=== PATIENT | female | born 1940 | race Caucasian/White ===

== ENCOUNTER 2022-09-13 23:10 | Inpatient (IN) | payer MEDICARE, OTHER ==
[~2022-09-13] VITALS: Ht 162.6 cm; Wt 59.0 kg
--- NOTE | 2022-09-13 23:24 | NUR ---
[id number]. DIZZYNESS X 2 HRS. PT A/OX4. TOLERTING R/A WELL WITH NO RESP DISTRESS. CONNECTED PT TO POX AND MONITOR. SAFETY MEASURES IN PLACE.
--- NOTE | 2022-09-13 23:59 | NUR ---
DR. JOSÉ MANUEL HERNANDEZ AT PT'S BEDSIDE FOR EVAL
[2022-09-14] MEDS ORDERED: IV NS 0.9% 500 ML BAG IV ONE
--- NOTE | 2022-09-14 00:18 | NUR ---
RAC #20G S/L BLOOD COLLECTED AND SENT TO LAB
--- NOTE | 2022-09-14 00:25 | NUR ---
URINE COLLECTED AND SENT TO LAB
[2022-09-14] MEDS ORDERED: MORPHINE SULFATE INJ 2 MG/ML DISP.SYRIN IV ONE (00:30)
[2022-09-14] MEDS ORDERED: MECLIZINE HCL 12.5 MG TABLET PO ONE (00:30)
[2022-09-14] MEDS ORDERED: ONDANSETRON HCL/PF 4 MG/2 ML VIAL IV ONE (00:30)
[2022-09-14] MEDS ORDERED: MECLIZINE HCL 25 MG TABLET ONE (00:50)
[2022-09-14] MEDS ORDERED: ONDANSETRON HCL/PF 4 MG/2 ML VIAL ONE (00:50)
[2022-09-14] MEDS ORDERED: MORPHINE SULFATE INJ 2 MG/ML DISP.SYRIN ONE (00:50)
[2022-09-14 00:51] LABS: BASOPHILS % (AUTO) 0.5 % (0.0-2.0); EOSINOPHILS % (AUTO) 3.5 % (0.0-6.0); HEMATOCRIT 37 % (33-45); HEMOGLOBIN 12.3 g/dL (11.5-14.8); LYMPHOCYTES # (AUTO) 1.8 K/uL (0.8-4.8); LYMPHOCYTES % (AUTO) 25.3 % (20.0-44.0); MEAN CORPUSCULAR HGB CONC 34 g/dl (31.0-36.0); MEAN CORPUSCULAR VOLUME 84 fL (82-100); MONOCYTES % (AUTO) 13.7 % (2.0-12.0); NEUTROPHILS # (AUTO) 4.1 K/uL (1.8-8.9); PLATELET COUNT (AUTO) 221 K/uL (150-450); RED BLOOD CELL COUNT(AUTO) 4.35 MIL/uL (4.0-5.2); WHITE BLOOD COUNT (AUTO) 7.2 K/uL (4.3-11.0)
--- NOTE | 2022-09-14 00:51 | NUR ---
PT TAKEN TO CT VIA MIKE
--- NOTE | 2022-09-14 00:56 | NUR ---
PT RETURNED TO ER BED [address]
[2022-09-14 01:00] LABS: CALCIUM, SERUM 8.7 mg/dL (8.5-10.1); CARBON DIOXIDE 27 mmol/L (21-32); CHLORIDE 96 mmol/L (98-107); CREATININE 0.8 mg/dL (0.6-1.3); GLUCOSE 105 mg/dL (74-106); POTASSIUM 3.8 mmol/L (3.5-5.1); SODIUM SERUM 129 mmol/L (136-145); UREA NITROGEN, BLOOD 17 mg/dL (7-18)
[2022-09-14 01:07] LABS: ALANINE AMINOTRANSFERASE 31 U/L (12-78); ALBUMIN 3.7 g/dL (3.4-5.0); ALKALINE PHOSPHATASE 52 U/L (46-116); ASPARTATE AMINOTRANSFERASE 17 U/L (15-37); BILIRUBIN,DIRECT 0.2 mg/dL (0.0-0.2); BILIRUBIN,TOTAL 0.6 mg/dL (0.2-1.0); TOTAL PROTEIN, SERUM 7.2 g/dL (6.4-8.2)
[2022-09-14 01:11] LABS: BILIRUBIN,URINE NEGATIVE (NEGATIVE); COLOR,URINE YELLOW (YELLOW); LEUKOCYTE ESTERASE ,URINE 1+ (NEGATIVE); NITRITE, URINE NEGATIVE (NEGATIVE); PROTEIN,URINE NEGATIVE (NEGATIVE); UGLUCOSE NEGATIVE (NEGATIVE); UROBILINOGEN,URINE 0.2 EU/dL (0.2)
[2022-09-14 01:22] LABS: BACTERIA,URINE 1+ /HPF (None Seen); RBC,URINE 0-2 /HPF (0-2); SQUAMOUS EPITHELIAL CELL,UR Few /HPF (None Seen)
[2022-09-14] MEDS ORDERED: NITROFURANTOIN/MONOHYDRATE MACROCRYSTALS 100 MG CAPSULE PO ONE (02:00)
[2022-09-14] MEDS ORDERED: NITROFURANTOIN/MONOHYDRATE MACROCRYSTALS 100 MG CAPSULE ONE (02:04)
--- NOTE | 2022-09-14 04:01 | NUR ---
COVID ANTIGEN SWAB COLLECTED AND SENT TO LAB
--- NOTE | 2022-09-14 04:11 | NUR ---
PT AMBULATORY TO RESTROOM WITH STEADY GAIY. ADLS DONE DENIES DIZZINESS OR PAIN.
--- NOTE | 2022-09-14 04:22 | NUR ---
PAGED EPIC FOR PANEL
--- NOTE | 2022-09-14 04:27 | NUR ---
DR. GEORGES ON PHONECALL WITH DR. ROSA FOR PANEL
[2022-09-14] MEDS ORDERED: hydrALAZINE HCL IV 20 MG VIAL IV PRN (05:00)
[2022-09-14] MEDS ORDERED: ACETAMINOPHEN 325 MG TABLET PO PRN (05:00)
[2022-09-14] MEDS ORDERED: ALBUTEROL FS 2.5 MG/0.5 ML VIAL.NEB NEB PRN (05:00)
[2022-09-14] MEDS ORDERED: MORPHINE SULFATE INJ 2 MG/ML DISP.SYRIN IV PRN (05:00)
[2022-09-14] MEDS ORDERED: ONDANSETRON HCL/PF 4 MG/2 ML VIAL IVP PRN (05:00)
[2022-09-14 05:45] LABS: THYROID STIMULATING HORMONE 0.88 uIU/mL (0.358-3.74)
--- NOTE | 2022-09-14 06:02 | NUR ---
REPORT GIVEN TO 3W YAIMA PANDEY FOR CARMEN
--- NOTE | 2022-09-14 06:14 | NUR ---
US TECH AT PT'S BEDSIDE
--- NOTE | 2022-09-14 06:25 | NUR ---
PT TRANSFERRED TO 310-1 VIA ACLS PROTOCOL. VSS. ALL BELONGINGS WITH PT.
[2022-09-14 06:30] VITALS: BP 140/72
--- NOTE | 2022-09-14 07:40 | NUR ---
RN OPENING NOTE PATIENT AWAKE IN BED RESTING A/O X 4. NO S/S OF PAIN NOTED AT THIS TIME. ON ROOM AIR, NO DISTRESS OR SHORTNESS OF BREATH NOTED. IV ACCESS RAC#20G, INTACT, PATENT AND FLUSHING WELL. PATIENT WITH EXTERNAL TRANSITION LEAD WITH CURRENT READING OF SR AND HR OF 75, NO CARDIAC DISTRESS NOTED. FALL AND SAFETY MEASURES IN PLACE, BED ALARM ON, BED IN LOW AND LOCK POSITION, CALL LIGHT AND TABLE WITHIN EASY REACH, SIDE RAILS X2. WILL CONTINUE TO MONITOR.
[2022-09-14 08:26] VITALS: BP 170/73
[2022-09-14] MEDS ORDERED: CHOL200010 PO (08:47)
[2022-09-14] MEDS ORDERED: BENA40TA8 PO (08:47)
[2022-09-14] MEDS ORDERED: FURO20TA4 PO (08:47)
[2022-09-14] MEDS ORDERED: HYDR-4077 PO (08:47)
[2022-09-14] MEDS ORDERED: METH1TAB69 PO (08:47)
[2022-09-14] MEDS ORDERED: DIGO125T PO (08:47)
[2022-09-14] MEDS ORDERED: CARV6.252 PO (08:47)
[2022-09-14] MEDS ORDERED: ROSU5TAB13 PO (08:47)
[2022-09-14] MEDS ORDERED: TAMS-12 PO (08:47)
[2022-09-14] MEDS ORDERED: APIX5TAB PO (08:47)
[2022-09-14] MEDS ORDERED: HEPARIN SODIUM, PORCINE 5000 UNITS/1 ML VIAL SQ SCH (09:00)
[2022-09-14] MEDS: CEFTRIAXONE 1 G in IV D5W 50 ML IV SCH (09:36)
[2022-09-14] MEDS: IV NS 0.9% 1,000 ML IV SCH ×2 (09:37→17:23)
[2022-09-14] MEDS: hydrALAZINE HCL 50 MG TABLET PO SCH ×3 (10:52→17:22)
[2022-09-14] MEDS: CARVEDILOL 6.25 MG TABLET PO SCH ×2 (10:55→17:22)
[2022-09-14] MEDS: APIXABAN 5 MG TABLET PO SCH ×3 (10:56→17:00)
[2022-09-14] MEDS ORDERED: METHENAMINE MANDELATE 1 GM TABLET PO SCH ×3 (11:00→13:30)
[2022-09-14 11:49] LABS: DIGOXIN 0.53 ng/mL (0.90-2.00)
[2022-09-14 13:20] VITALS: BP 122/52
[2022-09-14 14:50] VITALS: BP 122/52
[2022-09-14 16:16] VITALS: BP 136/60
--- NOTE | 2022-09-14 18:51 | NUR ---
RN CLOSING NOTE PATIENT AWAKE IN BED RESTING A/O X 4. NO S/S OF PAIN NOTED AT THIS TIME. ON ROOM AIR, NO DISTRESS OR SHORTNESS OF BREATH NOTED. IV ACCESS RAC#20G, INTACT, PATENT AND FLUSHING WELL. 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 SCHEDULE MEDICATIONS ADMINISTERED. FALL AND SAFETY MEASURES IN PLACE, BED ALARM ON, BED IN LOW AND LOCK POSITION, CALL LIGHT AND TABLE WITHIN EASY REACH, SIDE RAILS X2. WILL ENDORSE TO MARKET INTELLIGENCE CONSULTANT.
--- NOTE | 2022-09-14 19:10 | NUR ---
RN OPENING NOTE PATIENT IN BED, EYES CLOSED. EASILY AWAKENED. A/O X 4, PRIMARILY FARSI SPEAKING BUT ABLE TO SPEAK SOME [place]GI[place]. PATIENT IS ON RA, TOLERATING WELL, NO SOB NOTED. SHE IS ON TELE MONITOR READING SR 68 BPM. PATIENT HAS A RAC 20 G PATENT AND INTACT WITH NS AT 75 ML/HR ONGOING. PATIENT DOES NOT REPORT ANY DIZZINESS OR PAIN AT THIS TIME. SAFETY MEASURES IN PLACE: BED LOCKED AND IN LOWEST POSITION, CALL LIGHT WITHIN REACH, SIDE RAILS UP, BED ALARM ON. WILL MONITOR PATIENT CLOSELY.
[2022-09-14 20:00] VITALS: BP 142/61
[2022-09-14] MEDS ORDERED: TAMSULOSIN 0.4 MG CAP.SR.24H PO SCH (22:00)
[2022-09-15] VITALS: BP 133/67
[2022-09-15 05:00] VITALS: BP 158/66
[2022-09-15 06:20] LABS: BASOPHILS % (AUTO) 0.6 % (0.0-2.0); EOSINOPHILS % (AUTO) 4.7 % (0.0-6.0); HEMATOCRIT 36 % (33-45); HEMOGLOBIN 11.9 g/dL (11.5-14.8); LYMPHOCYTES # (AUTO) 1.9 K/uL (0.8-4.8); MEAN CORPUSCULAR HGB CONC 33 g/dl (31.0-36.0); MEAN CORPUSCULAR VOLUME 84 fL (82-100); MONOCYTES # (AUTO) 0.8 K/uL (0.1-1.30); MONOCYTES % (AUTO) 12.9 % (2.0-12.0); NEUTROPHILS # (AUTO) 3.4 K/uL (1.8-8.9); NEUTROPHILS % (AUTO) 52.8 % (43.0-81.0); PLATELET COUNT (AUTO) 216 K/uL (150-450); RED BLOOD CELL COUNT(AUTO) 4.25 MIL/uL (4.0-5.2); WHITE BLOOD COUNT (AUTO) 6.4 K/uL (4.3-11.0)
[2022-09-15] MEDS: IV NS 0.9% 1,000 ML IV SCH (06:41)
[2022-09-15 06:46] LABS: BILIRUBIN,TOTAL 0.4 mg/dL (0.2-1.0); CALCIUM, SERUM 8.6 mg/dL (8.5-10.1); CREATININE 0.7 mg/dL (0.6-1.3); MAGNESIUM 1.9 mg/dL (1.8-2.4); PHOSPHORUS 3.4 mg/dL (2.5-4.9); POTASSIUM 3.8 mmol/L (3.5-5.1); TOTAL PROTEIN, SERUM 6.1 g/dL (6.4-8.2)
--- NOTE | 2022-09-15 06:46 | NUR ---
RN CLOSING NOTE PATIENT IN BED, EYES CLOSED. EASILY AWAKENED. A/O X 4, PRIMARILY FARSI SPEAKING BUT ABLE TO SPEAK SOME [place]ORU[place]. PATIENT IS ON RA, TOLERATING WELL, NO SOB NOTED. SHE IS ON TELE MONITOR READING SR 64 BPM. PATIENT HAS A RAC 20 G PATENT AND INTACT WITH NS AT 75 ML/HR ONGOING. PATIENT DID NOT REPORT ANY DIZZINESS DURING THE SHIFT. SAFETY MEASURES IN PLACE: BED LOCKED AND IN LOWEST POSITION, CALL LIGHT WITHIN REACH, SIDE RAILS UP, BED ALARM ON. ALL NEEDS MET AND ATTENDED. ALL ORDERS CARRIED OUT. WILL ENDORSE TO DAY SHIFT NURSE FOR CARMEN.
--- NOTE | 2022-09-15 07:45 | NUR ---
RN OPENING NOTE PATIENT AWAKE IN BED RESTING A/O X 4. NO S/S OF PAIN NOTED AT THIS TIME. ON ROOM AIR, NO DISTRESS OR SHORTNESS OF BREATH NOTED. IV ACCESS RAC#20G, INTACT, PATENT AND FLUSHING WELL. PATIENT WITH EXTERNAL BOOKKEEPING ASSISTANT WITH CURRENT READING OF SR AND HR OF 68, NO CARDIAC DISTRESS NOTED. FALL AND SAFETY MEASURES IN PLACE, BED ALARM ON, BED IN LOW AND LOCK POSITION, CALL LIGHT AND TABLE WITHIN EASY REACH, SIDE RAILS X2. WILL CONTINUE TO MONITOR.
[2022-09-15 08:11] VITALS: BP_SYST 132; BP_SYST 137; BP_DIAS 69
[2022-09-15] MEDS: CEFTRIAXONE 1 G in IV D5W 50 ML IV SCH (08:36)
[2022-09-15] MEDS: hydrALAZINE HCL 50 MG TABLET PO SCH ×2 (08:37→13:38)
[2022-09-15] MEDS: APIXABAN 5 MG TABLET PO SCH (08:38)
[2022-09-15] MEDS: CARVEDILOL 6.25 MG TABLET PO SCH (08:38)
[2022-09-15] MEDS ORDERED: DIGOXIN 0.125 MG TABLET PO SCH (09:00)
[2022-09-15] MEDS ORDERED: ATORVASTATIN 10 MG TABLET PO SCH (09:00)
[2022-09-15] MEDS ORDERED: METHENAMINE MANDELATE 1 GM TABLET PO SCH (09:00)
[2022-09-15] MEDS ORDERED: BENAZEPRIL HCL 20 MG TABLET PO SCH (09:00)
[2022-09-15] MEDS ORDERED: BENA20TA78 PO (10:53)
[2022-09-15 12:00] VITALS: BP 136/67
[2022-09-15 13:38] VITALS: BP 136/61
--- NOTE | 2022-09-15 14:09 | NUR ---
SORORITY SUPERVISOR NOTE PATIENT DISCHARGE IN STABLE MEDICAL CONDITION. A/O X4. V/S TAKEN, STABLE AND RECORDED. NO IV ACCESS. NAME ARM BAND REMOVED. EXTERNAL POT RUNNER REMOVED AND RETURNED TO TELE DESK. SKIN ASSESSMENT DONE, SKIN INTACT. ALL BELONGINGS CHECKED AND SIGNED. HEALTH TEACHING AND DISCHARGE INSTRUCTIONS GIVEN TO PATIENT AND FAMILY AND VERBALIZED UNDERSTANDING. INSTRUCTED TO MAKE APPOINTMENT TO FOLLOW UP WITH HER DOCTOR. DISCUSSED PRESCRIPTIONS AND INSTRUCTED IN CASE OF EMERGENCY TO CALL 911 OR GO TO NEAREST ER. PATIENT LEFT UNIT AMBULATING WITH NO SIGNS OF DISTRESS ACCOMPANIED BY RN TO THE [facility]. PATIENT WENT HOME WITH FAMILY ([id number] - PATIENT'S SON) . CHARGE NURSE AWARE OF DISCHARGED.
== END 2022-09-15 14:00 | disposition home or self-care (01) | DRG 641 ==
LOC: ER 23:17 → TELE 09-14 05:38 → MED 09-15 09:20
PROVIDERS: ADMIT Nurse Practitioner Acute Care; ATTEND Nurse Practitioner Acute Care
DX: E86.0 Dehydration (principal); N39.0 Urinary tract infection, site not specified; E86.1 Hypovolemia; E87.1 Hypo-osmolality and hyponatremia; I16.0 Hypertensive urgency; E11.9 Type 2 diabetes mellitus without complications; E78.5 Hyperlipidemia, unspecified; I95.1 Orthostatic hypotension; B96.89 Other specified bacterial agents as the cause of diseases classified elsewhere; R79.89 Other specified abnormal findings of blood chemistry
CPT/HCPCS: 36415; 70450-TC; 71045-TC; 80048-TC; 80053-TC; 80061-TC; 80076-TC; 80162-TC; 81001; 83735-TC; 84100-TC; 84439-TC; 84443-TC; 84484-TC; 85025-TC; 85730-TC; 87081-TC; 87086-TC; 93307-TC; 97116-TC; 97530-TC; G0378; J0696; J1644; J2270; J2405; J7030; J7040; J7060; J8597